=== PATIENT | male | born 1975 | race Caucasian/White ===

== ENCOUNTER 2019-09-13 23:38 | Inpatient (IN) | payer OTHER, SELFPAY ==
--- NOTE | 2019-09-14 | RAD ---
RADIOGRAPH CHEST 1 VIEW: DATE: 09/13/2019 HISTORY: 44-year-old hypertensive male status post syncope. Concern for aspiration. FINDINGS: The visualized lung claros are clear. The cardiomediastinal silhouette and hilar shadows are normal. The lateral costophrenic angles are sharp. The osseous structures appear normal. There is no pneumothorax. IMPRESSION: Negative.
[2019-09-14 00:15] LABS: #Lymphocytes 1.7 thou/uL (1.20-3.40); #Monocytes 0.7 thou/uL (0.11-0.59); #Neutrophils 6.9 thou/uL (1.40-6.50); %Basophils 0.3 % (0.0-1.0); %Eosinophils 0.3 % (0.0-10.0); %Lymphocytes 17.7 % (21.0-51.0); %Monocytes 7.8 % (0.0-10.0); %Neutrophils 73.9 % (42.0-75.0); Hemoglobin 14.8 g/dL (14.0-18.0); Mean Corpuscular HGB CONC 35.8 g/dL (32.0-36.0); Mean Corpuscular Hemoglobin 32.9 pg (27.0-31.0); Mean Platelet Volume 6.7 fL (7.4-10.4); Platelet Count 212 thou/uL (130-400); RBC Distribution Width 11.2 % (11.5-14.5); Red Blood Cell (RBC) Count 4.51 mill/uL (4.70-6.10); White Blood Cell (WBC) Count 9.4 thou/uL (4.8-10.8)
[2019-09-14 00:54] LABS: ALT (SGPT) 46 U/L (8-55); AST (SGOT) 108 U/L (5-34); Albumin 4.2 g/dL (3.5-5.0); Alkaline Phosphatase 63 U/L (40-110); Anion Gap 19 mmol/L (10-20); BUN (Urea Nitrogen) 30 mg/dL (8.9-20.6); Bilirubin, Total 0.7 mg/dL (0.2-1.2); CK (CPK) 1127 U/L (30-200); Calc. Creatinine Clearance 0 mL/min (70-130); Calcium 8.6 mg/dL (7.8-10.44); Carbon Dioxide 15 mmol/L (22-29); Chloride 109 mmol/L (98-107); Estimated GFR-MDRD 75; Globulin 2.3 g/dL (2.4-3.5); Glucose 144 mg/dL (70-105); Potassium 4.4 mmol/L (3.5-5.1); Protein, Total 6.5 g/dL (6.0-8.3); Sodium 139 mmol/L (136-145)
[2019-09-14 02:28] LABS: Amphetamine Not Detected (NotDetected); Barbiturates Screen Not Detected (NotDetected); Benzodiazepine Screen Not Detected (NotDetected); Cocaine Metabolite Screen Not Detected (NotDetected); Medtox Control Line Valid? VALID (VALID); Medtox Reader # READER 4; Methadone Not Detected (NotDetected); Methamphetamine Not Detected (NotDetected); Opiate Screen Not Detected (NotDetected); Oxycodone Screen Not Detected (NotDetected); Phencyclidine (PCP) Not Detected (NotDetected); THC/Cannabinoid Screen Not Detected (NotDetected); Tricyclic Screen Not Detected (NotDetected)
[2019-09-14] MEDS ORDERED: Heparin 25,000 units/D5W 500 ML ONE (02:28)
[2019-09-14 02:31] LABS: INR-International Normal Ratio 1.1; PTT 24.9 SEC (22.9-36.1); Prothrombin Time 14.6 SEC (12.0-14.7)
[2019-09-14] MEDS ORDERED: Heparin 1,000 UNITS/ML VIAL ONE (02:31)
[2019-09-14] MEDS ORDERED: Norepinephrine 8 MG/0.9% NS 250 ML ONE (03:10)
[2019-09-14] MEDS ORDERED: Sodium Chloride 0.9% 1,000 ML IV SCH ×4 (04:15→13:45)
[2019-09-14] MEDS ORDERED: Heparin 10,000 UNITS/ 10 ML VIAL SLOW IVP SCH ×3 (04:30→05:00)
[2019-09-14] MEDS ORDERED: Senokot S 8.6-50 MG TAB PO PRN ×2 (04:30→04:48)
[2019-09-14] MEDS ORDERED: Calcium Carbonate 500 MG ChewTAB PO PRN ×2 (04:30→04:48)
[2019-09-14] MEDS ORDERED: Heparin 25,000 units/D5W 500 ML IV SCH (04:30)
[2019-09-14] MEDS ORDERED: Acetaminophen 325 MG TAB PO PRN ×2 (04:30→04:48)
[2019-09-14] MEDS ORDERED: Nitroglycerin 0.4 MG TAB (25 Tab Bottle) PO PRN ×2 (04:36→04:48)
[2019-09-14] MEDS ORDERED: Heparin 25,000 units/D5W 500 ML IVPB SCH ×2 (04:45→05:00)
--- NOTE | 2019-09-14 04:52 | HP ---
PRIMARY CARE PHYSICIAN: Uday pSringer MD CHIEF COMPLAINT: Near syncopal episode. HISTORY OF PRESENT ILLNESS: The patient is a 44-year-old male with hypertension, presented to the emergency room with above complaints. Over the last 1 week, the patient has gradual worsening shortness of breath, mainly on moderate to severe exertion, which is different from his baseline. Earlier tonight, the patient woke up with shortness of breath. He then went to the bathroom and felt lightheaded and dizzy; however, he denied any loss of consciousness. He gradually sat down on the floor. He was brought into the emergency room by EMS. He received 324 mg of aspirin along with IV fluids due to blood pressure of 95/70 at the scene. He had mild chest tightness without any nausea, vomiting, diaphoresis, or palpitations. 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 PAST MEDICAL HISTORY: 1. Hypertension. 2. Hypothyroidism. 3. Hyperlipidemia. 4. Anxiety. PAST SURGICAL HISTORY: Lymph node biopsy. ALLERGIES: NO KNOWN DRUG ALLERGIES. CURRENT HOME MEDICATIONS: 1. Lisinopril 20 mg daily. 2. Levothyroxine 125 mcg daily. SOCIAL HISTORY: The patient currently lives at home. He drinks alcohol socially. No tobacco or drug use. He is . FAMILY HISTORY: Father with prostate cancer, at the age of 69. Mother with irritable bowel syndrome. REVIEW OF SYSTEMS: All other review of systems were reviewed and negative. He denies any fever, chills, or recent viral illness. PHYSICAL EXAMINATION: VITAL SIGNS: Temperature 98.4 with a pulse rate of 51, lowest blood pressure of 69/36 with O2 saturation 99% on room air. GENERAL: A 44-year-old male in no apparent distress. HEENT: Head, atraumatic and normocephalic. Sclerae anicteric. Moist mucous membranes. No oral lesion. NECK: Supple. No JVD appreciated. No carotid bruit. LUNGS: Clear to auscultation bilaterally. No wheezing, rales, or rhonchi. HEART: S1 and S2 present. Regular rate and rhythm. No rubs or gallops. ABDOMEN: Soft, nontender. Bowel sounds present. EXTREMITIES: No edema or calf tenderness. NEUROLOGIC: Grossly nonfocal. Moves all 4 extremities. PSYCHIATRY: Alert, awake, and oriented x3. SKIN: Warm and dry. LYMPH NODE: No palpable lymph nodes in the neck. PERIPHERAL VASCULAR: Radial pulses palpable bilaterally. MUSCULOSKELETAL: No joint swelling tenderness. LABORATORY FINDINGS: CBC showed WBC 9.4 with hemoglobin 14.8, hematocrit 41.4 with platelets of 212. PT/INR and PTT normal range. Chemistry showed sodium 139, potassium 4.4, chloride 109, bicarb 15, BUN 30, creatinine 1.08. CK was 1127, troponin 11.9, repeat troponin 15.2 with CK-MB 134. BNP was 23. Urine drug screen was negative. IMAGING STUDIES: Chest x-ray by my review was negative for infiltrate. CT scan of the brain was negative. EKG by my review showed junctional bradycardia with nonspecific ST-T wave changes in the inferior lead. IMPRESSION: 1. Vlx-NI-wiiawhu elevation myocardial infarction. 2. Near syncope, suspected secondary to zmg-LO-igarnyt elevation myocardial infarction. 3. Hypotension, suspected secondary to jlm-JD-xqizipe elevation myocardial infarction. 4. History of hypertension. 5. Hypothyroidism. 6. Elevated CK, probably secondary to vpd-LD-fytiuyi elevation myocardial infarction. 7. Chronic kidney disease, stage 2. 8. Metabolic acidosis. PLAN: The patient will be monitored in the intensive care unit. He is currently on low-dose Levophed. We will continue aspirin along with heparin drip. We will hold beta blockers and BRONSON inhibitor due to hypotension. The patient will be kept n.p.o. We will check fasting lipid profile. We will add statins. We will continue IV fluid due to hypotension. The patient understands the above plan of care. Job ID: [id number]
[2019-09-14 05:07] LABS: Hemoglobin 13.9 g/dL (14.0-18.0); Platelet Count 192 thou/uL (130-400)
[2019-09-14 05:16] LABS: Hemoglobin A1c 5.4 % (4.0-6.0)
[2019-09-14 05:43] LABS: Troponin I 18.682 ng/mL (< 0.028)
[2019-09-14] MEDS ORDERED: Magnesium Sulfate 2 GM in Sodium Chloride 0.9% 100 ML IVPB SCH (06:00)
[2019-09-14] MEDS ORDERED: Magnesium 2 GM/50 ML 2 GM in Premix Bag 1 BAG IVPB SCH (06:15)
--- NOTE | 2019-09-14 07:35 | CT ---
PRELIMINARY REPORT/[facility]/EMERGENCY AFTER HOURS PROCEDURE: EXAM: CT Head Without Intravenous Contrast. CLINICAL HISTORY: 44M brought in by EMS for evaluation of syncope event. Pt reports he woke up suddenly from sleep with shortness of breath, reports go up quickly to go to bathroom and then "passed out". Pt EMS was there to catch patient and pt did not hit his head TECHNIQUE: Axial computed tomography images of the head/brain without intravenous contrast. COMPARISON: None provided. FINDINGS: BRAIN: No acute intraparenchymal hemorrhage. No mass lesion. No CT evidence for acute territorial infarct. N o midline shift or extra-axial collection. VENTRICLES: No hydrocephalus. ORBITS: The orbits are unremarkable. SINUSES AND MASTOIDS: The paranasal sinuses and mastoid air cells are clear. SOFT TISSUES: No significant facial or scalp soft tissue swelling evident. No radiopaque foreign body is seen. BONES: No acute skull fracture. IMPRESSION: No acute intracranial abnormality. ELECTRONICALLY SIGNED BY: Yordy Frias DO Sep 14, 2019 12:53:19 AM CDT This report is intended for review by the ordering physician only, in accordance of law. If you recei ve this report in error, please call [facility] at [phone]. FINAL REPORT EMERGENCY AFTER HOURS CT BRAIN WITHOUT CONTRAST: FINDINGS/IMPRESSION: I agree with the findings and impression given in the preliminary report per [facility] physici an. No evidence of acute intracranial abnormality.
[2019-09-14 08:25] LABS: ALT (SGPT) 84 U/L (8-55); AST (SGOT) 147 U/L (5-34); Albumin 3.9 g/dL (3.5-5.0); Alkaline Phosphatase 48 U/L (40-110); Anion Gap 11 mmol/L (10-20); BUN (Urea Nitrogen) 21 mg/dL (8.9-20.6); Bilirubin, Total 0.9 mg/dL (0.2-1.2); Calc. Creatinine Clearance 134 mL/min (70-130); Calcium 7.9 mg/dL (7.8-10.44); Carbon Dioxide 20 mmol/L (22-29); Cardiac Risk 4.7 (Less than 4.5); Chloride 112 mmol/L (98-107); Cholesterol 160 mg/dl (< 200 Desired); Estimated GFR-MDRD Greater than 90; Glucose 116 mg/dL (70-105); HDL Cholesterol 34 mg/dL (>60 Neg Risk); LDL Cholesterol, Calculated 117 mg/dL; Potassium 4.3 mmol/L (3.5-5.1); Protein, Total 5.9 g/dL (6.0-8.3); Sodium 139 mmol/L (136-145); Triglycerides 46 mg/dL (Less than 150)
[2019-09-14] MEDS: Famotidine 20 MG TAB PO SCH ×2 (08:30→20:37)
[2019-09-14 08:54] LABS: CKMB 124.9 ng/mL (0-6.6)
[2019-09-14] MEDS ORDERED: Aspirin 325 mg Enteric Coated Tablet PO SCH ×2 (09:00)
[2019-09-14] MEDS ORDERED: FLU VACC QS2019-20(6MOS UP)/PF 60 MCG/0.5 ML SYRINGE IM ONE (09:00)
[2019-09-14] MEDS ORDERED: Famotidine 20 MG TAB PO SCH (09:00)
[2019-09-14] MEDS ORDERED: Iopamidol 370 76% 50 ML VIAL FS ONE (09:02)
[2019-09-14] MEDS ORDERED: Iopamidol 370 76% 100 ML VIAL ONE (09:02)
[2019-09-14] MEDS ORDERED: Heparin 10,000 UNITS/1 ML VIAL ONE ×2 (11:21→12:47)
[2019-09-14] MEDS ORDERED: Communication Order-Pharmacy FS SCH (11:30)
[2019-09-14] MEDS ORDERED: Fentanyl 100 MCG/2 ML VIAL ONE (11:54)
[2019-09-14] MEDS ORDERED: Midazolam HCl 2 mg/2 ml Vial ONE (11:54)
--- NOTE | 2019-09-14 12:23 | CON ---
DATE OF CONSULTATION: HISTORY: Jose F Waller is a 44-year-old white male without any previous cardiac problems. Three days ago, he cut his lawn and stated that he became very hot with doing that. Then over the last 2 days, he had problems with continuing to feel hot, sweating a lot, and also began to notice that he was having exertional dyspnea. He then got up late last evening before midnight from bed and was feeling short of breath. He stood up and apparently became very lightheaded and dizzy, but did not lose consciousness. He gradually sat down on the floor. When EMS got there, his blood pressure was 95/70. He apparently had some mild chest tightness, although he denies that to me at this time. He was brought to the emergency room and was hypotensive with lowest blood pressure that I could find is 69/36. Also 2 EKGs showed that he had junctional bradycardia with rates in the 50s. There was evidence for old anterior infarction and also the second EKG showed 0.[address]-segment elevation in lead V3. He was given intravenous fluids, was placed on Levophed for a period of time. He now is in the critical care unit without specific complaints. PAST MEDICAL HISTORY: Hypertension, hypothyroidism, hypercholesterolemia. He states he was on cholesterol medicines in the past; however, once he was found to be hypothyroid (TSH 330 in March 2015), his cholesterol medicines were discontinued and he has not been on any since. MEDICATIONS: 1. Levothyroxine 0.125 mg daily. 2. Lisinopril 20 mg daily. ALLERGIES: NONE. OPERATION: Lymph node biopsy. SOCIAL HISTORY: He smoked for 7 or 8 years, but stopped when he was 27. He occasionally drinks. 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 FAMILY HISTORY: No history of coronary artery disease. REVIEW OF SYSTEMS: Unremarkable except as noted above. He denies any fever or cough. PHYSICAL EXAMINATION: VITAL SIGNS: Blood pressure 117/71, pulse 68 and sinus rhythm on the monitor. HEENT: PERRL. NECK: Supple. CHEST: Clear. CARDIAC: S1 and S2 are normal without any S3, S4, or murmurs. Carotid upstrokes normal without bruits. ABDOMEN: Normal bowel sounds without tenderness or organomegaly. EXTREMITIES: Revealed no clubbing, cyanosis, or edema. NEUROLOGIC: Grossly intact. SKIN: Warm and dry. LABORATORY DATA: EKG on admission revealed junctional bradycardia with rates in the upper 50s. One EKG showed 0.[address]-elevation in the inferior leads with T- wave changes. EKG now shows sinus rhythm with possible anterior infarction. Hemoglobin 14.8, hematocrit 41.4, white count 9400, platelets 212,000. Sodium 139, potassium 4.3, chloride 112, carbon dioxide 20, BUN 21, creatinine 0.81. On admission, his creatinine was 1.08 and BUN of 30. CK 1127, CK-MB 134.0, troponin-I is now up to 26.553. AST 147, ALT 84. Cholesterol 160, triglycerides 46, HDL 34, LDL 117. Cortisol is normal. BNP 23.1. Drug screen was negative. Head CT was unremarkable. Chest x-ray is unremarkable. IMPRESSION: 1. Sdp-KZ-wpdjeuipx myocardial infarction with troponin-I up to 26.553, CK-MB 124.9. He does have some mild ST elevation in lead 3 as well as poor R-wave progression with possible old anterior infarction. 2. Junctional bradycardia at the time of admission, which has resolved. 3. Hypotension with near syncope at home. 4. Hypertension. 5. Hypothyroidism. 6. Hypercholesterolemia. 7. Distant smoker. RECOMMENDATIONS: TSH will be obtained. Echo apparently has just been completed and will be reviewed. It is recommended that he undergo cardiac catheterization. Risks of this were discussed including , myocardial infarction, dye reaction, vascular injury, CVA, transfusion, limb loss, renal loss, etc. Also risks of intervention with PTCA and stent placement were discussed including , myocardial infarction, emergent CABG, restenosis, stent thrombosis, vessel perforation, etc. He has no history of gastrointestinal bleeding or stroke. He has no upcoming surgical procedures. Overall, it is recommended that a drug-eluting stent be placed if needed. With the changes in lead III, I anticipate that he has RCA disease. Job ID: [id number] [facility]
[2019-09-14] MEDS ORDERED: Aggrastat 12.5 MG/250 ML 250 ML ONE (12:47)
[2019-09-14] MEDS ORDERED: Adenosine 6 MG/2 ML VIAL ONE (13:02)
[2019-09-14] MEDS ORDERED: TICAGRELOR 90 MG TABLET ONE (13:05)
[2019-09-14] MEDS ORDERED: Morphine 2 MG/ML SYRINGE SLOW IVP PRN (13:32)
[2019-09-14] MEDS ORDERED: Aggrastat 12.5 MG/250 ML 250 ML IVPB SCH (14:45)
--- NOTE | 2019-09-14 15:25 | CON ---
DATE OF CONSULTATION: 09/14/2019 SERVICE: Pulmonary Medicine. REASON FOR CONSULTATION: ICU patient. HISTORY OF PRESENT ILLNESS: The patient is a 44-year-old male with past medical history significant for essentially nothing. He is in his usual state of health 2 to 3 days ago. 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 intake. He presented to the hospital on the day of admission with presyncopal symptoms and difficulty breathing. He got 5 L of fluid and had a significant improvement in symptoms. That being said, his troponin up trended through the night. As such, he is being considered for cardiac catheterization. The patient denies having any shortness of breath, fevers, chills, chest pain, nausea, vomiting, or diarrhea currently. He has otherwise returned to his usual state of health and feels much improved. PAST MEDICAL HISTORY: 1. Hypertension. 2. Dyslipidemia. 3. Anxiety disorder. 4. Hypothyroidism. PAST SURGICAL HISTORY: 1. Lymph node biopsy. 2. Cardiac catheterization. ALLERGIES: NO KNOWN DRUG ALLERGIES. MEDICATIONS: List of his inpatient medications was reviewed. No specific updates were made at this time. SOCIAL HISTORY: Negative for alcohol, tobacco, or illicit drug use. He has no exposure to chemicals, dust, asbestos, or tuberculosis. FAMILY HISTORY: Noncontributory. REVIEW OF SYSTEMS: General; head, ears, eyes, nose, throat; cardiovascular; respiratory; GI; ; musculoskeletal; neurologic; and skin are negative except as mentioned in HPI. PHYSICAL EXAMINATION: VITAL SIGNS: Afebrile, pulse 83, blood pressure 110/84, respirations 21, saturation 99%, currently on room air. GENERAL: The patient is awake and alert, in no apparent distress. LUNGS: Very good air entry without any prolonged expiratory phase or wheezing present. HEART: Normal rate, regular. ABDOMEN: Soft, nontender, and nondistended. Bowel sounds positive. MUSCULOSKELETAL: No cyanosis or clubbing. No pitting in the bilateral lower extremities. NEUROLOGIC: Grossly nonfocal. LABORATORY DATA: WBC 9.4, hemoglobin 13.9 and stable, and platelets 192,000 and also stable. INR 1.1. Basic metabolic profile is unremarkable. AST and ALT are gently up-trending. Urinalysis is unremarkable. Troponin has gone from 11 to 15 to 18 to 26. Cortisol level is adequate. Urine drug screen is unremarkable. IMAGING STUDIES: Echocardiogram demonstrates normal ejection fraction with a moderately enlarged right ventricular cavity, mild mitral regurgitation is present. Cardiac catheterization demonstrates 100% occlusion of the RCA. A mechanical thrombectomy was performed with drug-eluting stent placed. ASSESSMENT: 1. Blu-NV-gehevuhbu myocardial infarction. 2. Coronary artery disease with 100% occlusion of the right coronary artery, status post thrombectomy, and drug-eluting stent placed, postop day #0. 3. Presyncope. 4. Elevated LFTs. DISCUSSION AND PLAN: We will repeat some LFTs and TSH tomorrow morning. The culprit lesion has been identified and likely fixed. If he does not have any significant dysrhythmia on telemetry overnight, he can be considered for transition to the floor (sooner if Cardiology is okay with it). Pulmonary will continue to follow in this location, but when he leaves the ICU, I will sign off. Please call with additional questions or concerns through time. Job ID: [id number]
--- NOTE | 2019-09-14 16:49 | EKG ---
Test Reason : Blood Pressure : / mmHG Vent. Rate : 070 BPM Atrial Rate : 070 BPM P-R Int : 176 ms QRS Dur : 102 ms QT Int : 380 ms P-R-T Axes : 051 080 055 degrees QTc Int : 410 ms Sinus rhythm with marked sinus arrhythmia Cannot rule out Anterior infarct (cited on or before 13-SEP-2019) Abnormal ECG When compared with ECG of 14-SEP-2019 01:35, (Unconfirmed) Sinus rhythm has replaced Junctional rhythm Confirmed by Titus WELLS ([id number]) on 09/14/2019 4:48:57 PM Referred By: FATOUMATA Confirmed By:Titus WELLS
--- NOTE | 2019-09-14 16:50 | EKG ---
Test Reason : POST STENT-RCA Blood Pressure : / mmHG Vent. Rate : 083 BPM Atrial Rate : 083 BPM P-R Int : 176 ms QRS Dur : 100 ms QT Int : 368 ms P-R-T Axes : 066 076 021 degrees QTc Int : 432 ms Normal sinus rhythm with sinus arrhythmia Possible Inferior infarct , age undetermined Possible Anterior infarct (cited on or before 13-SEP-2019) Abnormal ECG When compared with ECG of 14-SEP-2019 09:09, (Unconfirmed) No significant change was found Confirmed by Titus WELLS ([id number]) on 09/14/2019 4:49:49 PM Referred By: KESHAWN Confirmed By:Titus WELLS
[2019-09-14] MEDS: TICAGRELOR 90 MG TABLET PO SCH (20:36)
[2019-09-14] MEDS ORDERED: Atorvastatin Calcium 40 MG TAB PO SCH ×2 (21:00)
[2019-09-15 04:02] LABS: #Lymphocytes 1.1 thou/uL (1.20-3.40); #Monocytes 0.7 thou/uL (0.11-0.59); #Neutrophils 3.5 thou/uL (1.40-6.50); %Basophils 0.3 % (0.0-1.0); %Eosinophils 0.2 % (0.0-10.0); %Lymphocytes 20.3 % (21.0-51.0); %Monocytes 12.8 % (0.0-10.0); %Neutrophils 66.5 % (42.0-75.0); Mean Corpuscular HGB CONC 34.7 g/dL (32.0-36.0); Mean Corpuscular Hemoglobin 32.1 pg (27.0-31.0); Mean Corpuscular Volume 92.4 fL (78.0-98.0); Mean Platelet Volume 6.8 fL (7.4-10.4); Platelet Count 179 thou/uL (130-400); RBC Distribution Width 11.4 % (11.5-14.5); Red Blood Cell (RBC) Count 4.04 mill/uL (4.70-6.10); White Blood Cell (WBC) Count 5.3 thou/uL (4.8-10.8)
[2019-09-15 04:16] LABS: ALT (SGPT) 79 U/L (8-55); AST (SGOT) 128 U/L (5-34); Albumin 3.6 g/dL (3.5-5.0); Alkaline Phosphatase 43 U/L (40-110); Anion Gap 14 mmol/L (10-20); BUN (Urea Nitrogen) 12 mg/dL (8.9-20.6); Bilirubin, Total 0.6 mg/dL (0.2-1.2); Calc. Creatinine Clearance 157 mL/min (70-130); Calcium 7.7 mg/dL (7.8-10.44); Carbon Dioxide 16 mmol/L (22-29); Chloride 109 mmol/L (98-107); Estimated GFR-MDRD Greater than 90; Glucose 105 mg/dL (70-105); Protein, Total 5.6 g/dL (6.0-8.3); Sodium 135 mmol/L (136-145)
[2019-09-15 06:18] VITALS: BMI 24.5
[2019-09-15] MEDS: Levothyroxine Sodium 125 MCG TAB PO SCH (06:21)
[2019-09-15] MEDS: TICAGRELOR 90 MG TABLET PO SCH ×2 (08:38→20:32)
[2019-09-15] MEDS: Famotidine 20 MG TAB PO SCH ×2 (08:39→20:32)
[2019-09-15] MEDS: Aspirin Chewable 81 MG TAB PO SCH (08:39)
[2019-09-15] MEDS ORDERED: FLU VACC QS2019-20(6MOS UP)/PF 60 MCG/0.5 ML SYRINGE IM ONE (09:00)
[2019-09-15] MEDS ORDERED: Sodium Chloride 0.65% Nasal 44 ML BOT EA NARE PRN (09:12)
[2019-09-15] MEDS ORDERED: Fluticasone Propionate Nasal Spray 16 gm Bottle NASAL PRN (09:12)
--- NOTE | 2019-09-15 09:13 | PDOC.HOSPP ---
- Subjective Encounter Date: 09/15/19 Encounter Time: 09:13 Subjective: Patient seen and examined for NSTEMI. No CP or SOB. No new complaints. No overnight events - Objective Vital Signs & Weight: Vital Signs (12 hours) Temp Pulse Resp BP BP BP Pulse Ox 09/15/19 08:00 98.8 F 09/15/19 06:53 96 09/15/19 05:00 86 18 118/79 115/86 119/85 100 09/15/19 04:00 99.1 F 09/15/19 00:00 98.9 F Weight Weight 176 lb 5.917 oz Most Recent Monitor Data Heart Rate from ECG 81 NIBP 116/72 NIBP BP-Mean 86 Respiration from ECG 15 SpO2 96 I&O: 09/14/19 09/15/19 09/16/19 06:59 06:59 06:59 Intake Total 266 2497 Output Total 2500 600 Balance 266 -3 -600 Result Diagrams: 09/15/19 03:19 09/15/19 03:19 EKG Reviewed by me: Yes (Tele SR) Hospitalist ROS - Review of Systems Cardiovascular: denies: chest pain, palpitations, orthopnea, paroxysmal noc. dyspnea, edema, light headedness, other Gastrointestinal: denies: nausea, vomiting, abdominal pain, diarrhea, constipation, melena, hematochezia, other - Medication Medications: Active Medications Generic Name Dose Route Start Last Admin Trade Name Freq PRN Reason Stop Dose Admin Aspirin 81 mg 09/15/19 09:00 09/15/19 08:39 Aspirin Chewable PO 81 mg DAILY KANDIS Administration Atorvastatin Calcium 40 mg 09/14/19 21:00 09/14/19 20:36 Lipitor PO 40 mg HS KANDIS Administration Famotidine 20 mg 09/14/19 09:00 09/15/19 08:39 Pepcid PO 20 mg BID KANDIS Administration Tirofiban/Sodium Chloride 250 mls @ 0 mls/hr 09/14/19 14:45 09/15/19 03:21 Aggrastat 12.5 Mg/250 Ml IVPB 250 mls INF KANDIS Administration Protocol As Directed Levothyroxine Sodium 125 mcg 09/15/19 06:00 09/15/19 06:21 Synthroid PO 125 mcg 0600 KANDIS Administration Ticagrelor 90 mg 09/14/19 21:00 09/15/19 08:38 Brilinta PO 90 mg BID KANDIS Administration - Exam General Appearance: NAD General - other findings: on Tirofiban drip Heart: RRR, no gallops Respiratory: no wheezes, no ronchi Gastrointestinal: non-tender, non-distended, normal bowel sounds Extremities: no cyanosis Neurological: no new deficit Hosp A/P - Plan DVT proph w/SCDs 1. Awv-NN-yiezcwv elevation myocardial infarction due to RCA 2. Near syncope due to hypotension. 3. s/p RCA stent 4. History of hypertension. 5. Hypothyroidism. 6. Elevated CK/Rhabdomyolysis. 7. Chronic kidney disease, stage 2. 8. Metabolic acidosis. PLAN: Cont ASA/Brilinta/Statins No ACEI/BB due to relative hypotension On Tirofiban drip Cont Levothyroxine Add Loratadine Cont other meds as above AM labs
[2019-09-15] MEDS ORDERED: Loratadine 10 MG TAB PO SCH (09:15)
--- NOTE | 2019-09-15 12:18 | PRG ---
DATE OF SERVICE: 09/15/2019 SERVICE: Pulmonary Medicine. INTERVAL HISTORY: The patient is doing great from respiratory standpoint. He has no shortness of breath or chest discomfort. Otherwise, there has been no interval change to his condition. PHYSICAL EXAMINATION: VITAL SIGNS: Afebrile, pulse 85, blood pressure 130/85, respirations 25, and saturation 97% on room air. GENERAL: The patient is awake and alert, in no apparent distress. LUNGS: Wonderful air entry with no prolonged expiratory phase or wheezing present. HEART: Normal rate and regular. ABDOMEN: Soft, nontender, and nondistended. Bowel sounds are positive. MUSCULOSKELETAL: No cyanosis or clubbing. No pitting in the bilateral lower extremities. NEUROLOGIC: Grossly nonfocal. LABORATORY DATA: Comprehensive metabolic profile is essentially unremarkable. AST and ALT are downtrending, alkaline phosphatase falls within the normal limits. Hemoglobin 13.0 and stable. CBC is otherwise unremarkable. Urine drug screen is also negative. IMAGING: Echocardiogram demonstrates normal ejection fraction. There is moderately enlarged right ventricular cavity and mild mitral regurgitation present. ASSESSMENT: 1. Kcl-UV-opekswbha myocardial infarction. 2. Coronary artery disease with 100% occlusion of the right coronary artery, status post thrombectomy, and drug-eluting stent placement, postop day #1. 3. Presyncope, resolved. 4. Hepatitis secondary to passive congestion, resolving. DISCUSSION AND PLAN: The patient is doing great from respiratory standpoint. He is stable for transition out of the ICU to the telemetry unit. At this point, he has no further requirements for inpatient Pulmonary/Critical Care opinion, and I will sign off. Please call with additional questions or concerns through time. Job ID: [id number]
[2019-09-15] MEDS: Metoprolol Tartrate 25 MG TAB PO SCH (20:31)
[2019-09-16 05:04] LABS: Hemoglobin 13.3 g/dL (14.0-18.0); Platelet Count 186 thou/uL (130-400)
[2019-09-16 05:37] LABS: ALT (SGPT) 66 U/L (8-55); AST (SGOT) 62 U/L (5-34); Alkaline Phosphatase 49 U/L (40-110); Anion Gap 11 mmol/L (10-20); BUN (Urea Nitrogen) 13 mg/dL (8.9-20.6); Bilirubin, Total 0.8 mg/dL (0.2-1.2); Calc. Creatinine Clearance 138 mL/min (70-130); Carbon Dioxide 24 mmol/L (22-29); Chloride 107 mmol/L (98-107); Estimated GFR-MDRD Greater than 90; Globulin 2.4 g/dL (2.4-3.5); Glucose 96 mg/dL (70-105); Magnesium 1.7 mg/dL (1.6-2.6); Potassium 4.3 mmol/L (3.5-5.1); Protein, Total 6.4 g/dL (6.0-8.3); Sodium 138 mmol/L (136-145)
[2019-09-16] MEDS: Levothyroxine Sodium 125 MCG TAB PO SCH (05:50)
[2019-09-16] MEDS: Loratadine 10 MG TAB PO SCH (08:24)
[2019-09-16] MEDS: Metoprolol Tartrate 25 MG TAB PO SCH ×2 (08:24→20:23)
[2019-09-16] MEDS: Aspirin Chewable 81 MG TAB PO SCH (08:24)
[2019-09-16] MEDS: Famotidine 20 MG TAB PO SCH ×2 (08:24→20:23)
[2019-09-16] MEDS: TICAGRELOR 90 MG TABLET PO SCH ×2 (08:25→20:23)
--- NOTE | 2019-09-16 12:33 | PDOC.HOSPP ---
- Subjective Encounter Date: 09/16/19 Encounter Time: 09:30 Subjective: Patient seen and examined for NSTEMI. No CP or Palpitations. No new complaints. No overnight events - Objective Vital Signs & Weight: Vital Signs (12 hours) Temp Pulse Pulse Pulse Resp BP BP 09/16/19 11:26 98.9 F 68 12 09/16/19 10:40 94 72 128/79 124/79 09/16/19 10:37 09/16/19 08:21 98.9 F 76 16 09/16/19 04:12 97.9 F 73 16 BP BP BP BP Pulse Ox Pulse Ox 09/16/19 11:26 123/76 97 09/16/19 10:40 97 09/16/19 10:37 98 09/16/19 08:21 122/71 99 09/16/19 04:12 122/78 123/83 122/70 98 Weight Weight 176 lb 5.917 oz Most Recent Monitor Data Heart Rate from ECG 85 NIBP 130/85 NIBP BP-Mean 100 Respiration from ECG 25 SpO2 97 I&O: 09/15/19 09/16/19 09/17/19 06:59 06:59 06:59 Intake Total 2497 1090 Output Total 2500 1280 Balance -3 -190 Result Diagrams: 09/16/19 04:50 09/16/19 04:50 EKG Reviewed by me: Yes (Tele SR) Hospitalist ROS - Review of Systems Cardiovascular: denies: chest pain, palpitations, orthopnea, paroxysmal noc. dyspnea, edema, light headedness, other Gastrointestinal: denies: nausea, vomiting, abdominal pain, diarrhea, constipation, melena, hematochezia, other - Medication Medications: Active Medications Generic Name Dose Route Start Last Admin Trade Name Freq PRN Reason Stop Dose Admin Aspirin 81 mg 09/15/19 09:00 09/16/19 08:24 Aspirin Chewable PO 81 mg DAILY KANDIS Administration Famotidine 20 mg 09/14/19 09:00 09/16/19 08:24 Pepcid PO 20 mg BID KANDIS Administration Levothyroxine Sodium 125 mcg 09/15/19 06:00 09/16/19 05:50 Synthroid PO 125 mcg 0600 KANDIS Administration Loratadine 10 mg 09/16/19 09:00 09/16/19 08:24 Claritin PO 10 mg DAILY KANDIS Administration Metoprolol Tartrate 12.5 mg 09/15/19 21:00 09/16/19 08:24 Lopressor PO 12.5 mg BID KANDIS Administration Ticagrelor 90 mg 09/14/19 21:00 09/16/19 08:25 Brilinta PO 90 mg BID KANDIS Administration - Exam General Appearance: NAD Heart: RRR, no gallops Respiratory: no wheezes, no ronchi Gastrointestinal: non-tender, non-distended, normal bowel sounds Extremities: no cyanosis, no clubbing Hosp A/P - Plan DVT proph w/SCDs 1. Zib-YL-vnhhhmg elevation myocardial infarction due to RCA 2. Near syncope due to hypotension. 3. s/p RCA stent 4. History of hypertension. 5. Hypothyroidism. 6. Elevated CK/Rhabdomyolysis. 7. Chronic kidney disease, stage 2. 8. Metabolic acidosis. 9. Abn LFTs PLAN: Cont ASA/Brilinta Statins on hold due to Abn LFTs No ACEI/BB due to relative hypotension Cont Levothyroxine Cont other meds as above LFTs in AM
[2019-09-17 05:03] LABS: ALT (SGPT) 66 U/L (8-55); AST (SGOT) 39 U/L (5-34); Albumin 4.4 g/dL (3.5-5.0); Alkaline Phosphatase 55 U/L (40-110); Bilirubin, Direct 0.3 mg/dL (0.1-0.3); Bilirubin, Total 0.9 mg/dL (0.2-1.2); Protein, Total 7.3 g/dL (6.0-8.3)
[2019-09-17] MEDS: Levothyroxine Sodium 125 MCG TAB PO SCH (06:29)
[2019-09-17] MEDS: Famotidine 20 MG TAB PO SCH (08:55)
[2019-09-17] MEDS: Aspirin Chewable 81 MG TAB PO SCH (08:55)
[2019-09-17] MEDS: TICAGRELOR 90 MG TABLET PO SCH (08:56)
[2019-09-17] MEDS: Loratadine 10 MG TAB PO SCH (08:56)
[2019-09-17] MEDS: Metoprolol Tartrate 25 MG TAB PO SCH (08:56)
[2019-09-17] MEDS ORDERED: Metoprolol Tartrate 25 MG TAB PO SCH ×2 (09:00→10:45)
[2019-09-17 11:23] VITALS: BP 117/81; TEMP 97.4
--- NOTE | 2019-09-17 16:48 | DIS ---
DATE OF ADMISSION: 09/14/2019 DATE OF DISCHARGE: 09/17/2019 DISCHARGE DISPOSITION: Home. FOLLOWUP: 1. Follow up with Dr. Uday Springer as scheduled. 2. Follow up with Dr. Ernesto Horton in 2 to 3 weeks. 3. Outpatient cardiac rehabilitation. DISCHARGE MEDICATIONS: 1. Aspirin 81 mg daily. 2. Brilinta 90 mg b.i.d. 3. Metoprolol tartrate 25 mg b.i.d. 4. Sublingual nitroglycerin as needed. All other home medications were left unchanged. INPATIENT DIET SUPERVISOR: Cardiology, Dr. Ernesto Horton. INPATIENT PROCEDURES: Cardiac catheterization on 14 September 2019 showed 100% stenosis in the proximal RCA, status post drug-eluting stent placement. Echocardiogram showed ejection fraction of 60% to 65% with moderately enlarged right ventricular cavity, mild mitral regurgitation, mild tricuspid regurgitation. CT scan of the brain was negative for acute findings. Chest x-ray was negative for acute findings. BRIEF HOSPITAL COURSE: The patient is a 44-year-old male with hypertension, presented to the emergency room with near syncopal episode. Please refer to the history and physical dated 14 September 2019 for further details. The patient was admitted to the hospital with a diagnosis of non-ST elevation MA. His blood pressure improved with IV hydration. He briefly required Levophed drip. He was monitored in the intensive care unit setting. He underwent cardiac catheterization as discussed above. He has been started on dual antiplatelet therapy. Post cardiac catheterization, he was also on tirofiban drip. He was later transferred to telemetry unit. He has been cleared by Cardiology for discharge. The patient also had abnormal LFTs on admission that has improved significantly. His AST at discharge is 39 with a maximum AST of 147, ALT at discharge is 66 with a maximum ALT of 84. FINAL DIAGNOSES: 1. Zwm-KA-azejprqnq myocardial infarction due to right coronary artery occlusion, status post drug-eluting stent placement. 2. Near syncopal episode secondary to #1 as well as hypotension. 3. History of hypertension. 4. Hypothyroidism. 5. Elevated CK secondary to #1. 6. Chronic kidney disease, stage 2. 7. Metabolic acidosis. 8. Hyponatremia. 9. Abnormal LFTs probably secondary to #1. 10. The patient understands the above plan of care. Job ID: [id number]
--- NOTE | 2019-09-17 20:53 | EKG ---
Test Reason : ROUTINE Blood Pressure : / mmHG Vent. Rate : 080 BPM Atrial Rate : 080 BPM P-R Int : 184 ms QRS Dur : 094 ms QT Int : 372 ms P-R-T Axes : 066 045 -08 degrees QTc Int : 429 ms Sinus rhythm with occasional Premature ventricular complexes Abnormal ECG When compared with ECG of 14-SEP-2019 13:45, Premature ventricular complexes are now Present Borderline criteria for Anterior infarct are no longer Present Confirmed by Titus WELLS ([id number]) on 09/17/2019 8:53:25 PM Referred By: ALINA LIAO Confirmed By:Titus WELLS
[2019-09-17] MEDS ORDERED: Atorvastatin Calcium 40 MG TAB PO SCH (21:00)
== END 2019-09-17 12:20 | disposition home or self-care (01) | DRG 247 ==
LOC: ERS 23:38 → CCU 09-14 02:59 → 2NO 09-15 12:22
PROVIDERS: ADMIT Internal Medicine; ATTEND Internal Medicine
PROC: 027034Z Dilation of Coronary Artery, One Artery with Drug-eluting Intraluminal Device, Percutaneous Approach (ICD-10-PCS; principal; 2019-09-14)
PROC: 02C03ZZ Extirpation of Matter from Coronary Artery, One Artery, Percutaneous Approach (ICD-10-PCS; 2019-09-14)
PROC: 4A023N7 Measurement of Cardiac Sampling and Pressure, Left Heart, Percutaneous Approach (ICD-10-PCS; 2019-09-14)
PROC: B2111ZZ Fluoroscopy of Multiple Coronary Arteries using Low Osmolar Contrast (ICD-10-PCS; 2019-09-14)
PROC: 3E07317 Introduction of Other Thrombolytic into Coronary Artery, Percutaneous Approach (ICD-10-PCS; 2019-09-14)
DX: I21.4 Non-ST elevation (NSTEMI) myocardial infarction (principal); E87.2 Acidosis; E87.1 Hypo-osmolality and hyponatremia; I95.9 Hypotension, unspecified; E03.9 Hypothyroidism, unspecified; N18.2 Chronic kidney disease, stage 2 (mild); I12.9 Hypertensive chronic kidney disease with stage 1 through stage 4 chronic kidney disease, or unspecified chronic kidney disease; F41.9 Anxiety disorder, unspecified; E78.5 Hyperlipidemia, unspecified; E78.00 Pure hypercholesterolemia, unspecified; R00.1 Bradycardia, unspecified; K75.89 Other specified inflammatory liver diseases
CPT/HCPCS: 36415; 70450; 71045; 80053; 80061; 80076; 80306; 82533; 82550; 82553; 83036; 83735; 83880; 84443; 84484; 85014; 85018; 85025; 85049; 85347; 85610; 85730; 92928; 92973; 92977; 93005; 93010; 93306; 93458; 93798; 94760; 96361; 96365; 96368; 96376; 99152; 99153; 99292; C1725; C1757; C1769; C1887; C9600; J0153; J1644; J2250; J3010; J3246; J3475; Q9967